=== PATIENT | female | born 1945 | race Caucasian/White ===

== ENCOUNTER → 2016-03-08 | Outpatient (CLI) | payer MEDICARE, BC ==
[~2016-03-08] MED LIST: CYMBALTA60 MG PO; LEVOTHYROXIN0.075 MG PO; SIMVASTATIN20 MG PO
== END ==
LOC: LAB 09:53
DX: R53.83 Other fatigue (principal); E78.2 Mixed hyperlipidemia; E03.9 Hypothyroidism, unspecified

== ENCOUNTER 2016-03-13 13:00 | Outpatient (RCR) | payer MEDICARE, BC ==
[2014-09-09 19:07] VITALS: BP 146/73
== END 2016-05-19 14:29 | disposition home or self-care (01) ==
LOC: PT 13:00
DX: Z47.1 Aftercare following joint replacement surgery (principal); Z96.643 Presence of artificial hip joint, bilateral